=== PATIENT | female | born 2000 ===

== ENCOUNTER 2024-08-05 09:29 | Outpatient (CLI) | payer OTHER | END 2024-08-05 09:31 | disposition home or self-care (01) | LOC: PRENATAL 09:29 | PROVIDERS: ATTEND Obstetrics & Gynecology Maternal & Fetal Medicine | DX: O44.00 Complete placenta previa NOS or without hemorrhage, unspecified trimester (principal); Z14.8 Genetic carrier of other disease; Z3A.20 20 weeks gestation of pregnancy ==

== ENCOUNTER 2024-10-28 14:10 | Outpatient (CLI) | payer OTHER | END 2024-10-28 14:11 | disposition home or self-care (01) | LOC: PRENATAL 14:10 | PROVIDERS: ATTEND Obstetrics & Gynecology Maternal & Fetal Medicine | DX: O26.849 Uterine size-date discrepancy, unspecified trimester (principal); O36.8130 Decreased fetal movements, third trimester, not applicable or unspecified; Z14.8 Genetic carrier of other disease; O36.60X0 Maternal care for excessive fetal growth, unspecified trimester, not applicable or unspecified; Z3A.34 34 weeks gestation of pregnancy ==

== ENCOUNTER 2024-11-30 13:45 | Outpatient (CLI) | payer OTHER | END 2024-11-30 13:46 | disposition home or self-care (01) | LOC: PRENATAL 13:45 | PROVIDERS: ATTEND Obstetrics & Gynecology Maternal & Fetal Medicine | DX: O26.849 Uterine size-date discrepancy, unspecified trimester (principal); O36.8130 Decreased fetal movements, third trimester, not applicable or unspecified; Z14.8 Genetic carrier of other disease; O28.3 Abnormal ultrasonic finding on antenatal screening of mother; Z3A.37 37 weeks gestation of pregnancy ==